=== PATIENT | female | born 1960 | race Caucasian/White ===

== ENCOUNTER → 2016-06-16 | Outpatient (CLI) | payer BC ==
--- NOTE | 2016-06-17 10:09 | MM ---
Reason for exam: screening (asymptomatic). Last mammogram was performed 1 year ago. History: Family history of breast cancer in cousin. Benign excisional biopsy of the left breast, 1991. Physical Findings: A clinical breast exam by your physician is recommended on an annual basis and results should be correlated with mammographic findings. MG 3D Screening Mammo W/Cad Bilateral CC and MLO view(s) were taken. Prior study comparison: June 09, 2015, bilateral MG screening mammo w CAD. May 08, 2014, bilateral MG screening mammo w CAD. The breast tissue is heterogeneously dense. This may lower the sensitivity of mammography. No significant changes when compared with prior studies. ASSESSMENT: Benign, BI-RAD 2 RECOMMENDATION: Routine screening mammogram of both breasts in 1 year.
== END | disposition home or self-care (01) ==
LOC: RADMAMWWP 09:18
PROVIDERS: ATTEND Obstetrics & Gynecology
DX: Z12.31 Encounter for screening mammogram for malignant neoplasm of breast (principal)
CPT/HCPCS: 77063; G0202

== ENCOUNTER → 2016-11-23 | Outpatient (CLI) | payer BC ==
--- NOTE | 2016-11-23 15:07 | CT ---
EXAMINATION TYPE: CT brain wo/w con DATE OF EXAM: 11/23/2016 COMPARISON: NONE HISTORY: Patient complains of pressure behind left eye. CT DLP: 1615.6mGycm CONTRAST: CT scan of the head is performed without and with IV Contrast, patient injected with 100 mL of Omnipa que 300. Unenhanced followed by contrast enhanced CT of the brain is submitted for evaluation. The ventricles are midline. There is no evidence for intracranial hemorrhage or extra-axial collection. No mass e ffects are identified. Visualized bony calvarium is intact. Contrast is administered and no enhanci ng lesions are detected. No pathologic enhancement is identified. If symptoms persist consider MRI. IMPRESSION: No significant abnormality or enhancing lesion identified at this time.
== END | disposition home or self-care (01) ==
LOC: RADCTMAIN 14:23
PROVIDERS: ATTEND Family Medicine
DX: R51 Headache (principal)
CPT/HCPCS: 70470; Q9967

== ENCOUNTER → 2017-07-06 | Outpatient (CLI) | payer BC ==
--- NOTE | 2017-07-07 09:24 | MM ---
Reason for exam: screening (asymptomatic). Last mammogram was performed 1 year and 1 month ago. History: Family history of breast cancer in cousin. Benign excisional biopsy of the left breast, 1991. Physical Findings: A clinical breast exam by your physician is recommended on an annual basis and results should be correlated with mammographic findings. MG 3D Screening Mammo W/Cad Bilateral CC, MLO, and XCCL view(s) were taken. Prior study comparison: June 16, 2016, bilateral MG 3d screening mammo w/cad. June 09, 2015, bilateral MG screening mammo w CAD. The breast tissue is heterogeneously dense. This may lower the sensitivity of mammography. There is chronic nodularity bilaterally. No significant changes when compared with prior studies. ASSESSMENT: Benign, BI-RAD 2 RECOMMENDATION: Routine screening mammogram of both breasts in 1 year.
== END | disposition home or self-care (01) ==
LOC: RADMAMWWP 09:29
PROVIDERS: ATTEND Obstetrics & Gynecology
DX: Z12.31 Encounter for screening mammogram for malignant neoplasm of breast (principal)
CPT/HCPCS: 77063; 77067

== ENCOUNTER → 2017-10-12 | Outpatient (CLI) | payer BC ==
--- NOTE | 2017-10-12 14:42 | XR ---
EXAMINATION TYPE: XR calcaneus 2V LT DATE OF EXAM: 10/12/2017 COMPARISON: NONE HISTORY: Foot pain after walking. TECHNIQUE: 2 views of left calcaneus are obtained. FINDINGS: No acute fracture or dislocation is evident. Boehler's angle is maintained. No significant spurring is noted. Overlying soft tissue is unremarkable. IMPRESSION: As above.
== END | disposition home or self-care (01) ==
LOC: RADXRMAIN 14:02
PROVIDERS: ATTEND Family Medicine
DX: M79.672 Pain in left foot (principal)

== ENCOUNTER → 2017-10-26 | Outpatient (CLI) | payer BC ==
--- NOTE | 2017-10-26 13:30 | US ---
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 EXAM MEASUREMENTS: RIGHT: Peak Systolic Velocity (PSV) cm/sec ----- Right CCA: 65.1 ----- Right ICA: 63.9 ----- Right ECA:84.4 ICA/CCA ratio: 1.0 RIGHT: End Diastole cm/sec ----- Right CCA: 20.6 ----- Right ICA: 28.9 ----- Right ECA: 16.8 LEFT: Peak Systolic Velocity (PSV) cm/sec ----- Left CCA: 82.0 ----- Left ICA: 64.7 ----- Left ECA: 89.7 ICA/CCA ratio: 0.8 LEFT: End Diastole cm/sec ----- Left CCA: 18.2 ----- Left ICA: 24.9 ----- Left ECA: 11.1 VERTEBRALS (direction of flow): Right Vertebral: Antegrade Left Vertebral: Antegrade Rhythm: Normal No evident atherosclerotic changes with no significant velocity elevations. IMPRESSION: No sonographically evident hemodynamically significant stenosis within either visualized carotid arterial system.
== END | disposition home or self-care (01) ==
LOC: RADUSWWP 12:42
PROVIDERS: ATTEND Family Medicine
DX: I65.29 Occlusion and stenosis of unspecified carotid artery (principal)
CPT/HCPCS: 93880

== ENCOUNTER → 2017-11-15 | Outpatient (CLI) | payer BC | END | disposition home or self-care (01) | LOC: LABWHC1 06:42 | PROVIDERS: ATTEND Family Medicine | DX: M45.9 Ankylosing spondylitis of unspecified sites in spine (principal) | CPT/HCPCS: 36415 ==

== ENCOUNTER → 2018-01-02 | Outpatient (CLI) | payer BC ==
--- NOTE | 2018-01-02 10:06 | CT ---
EXAMINATION TYPE: CT brain wo/w con DATE OF EXAM: 01/02/2018 COMPARISON: 11/23/2016 HISTORY: 57-year-old female headache and Uveitis TECHNIQUE: Examination was done in axial plane without intravenous contrast. Coronal and sagittal r econstructions performed. CT DLP: 1963.4 mGycm Automated exposure control for dose reduction was used. FINDINGS: There is no evidence of acute intracranial hemorrhage, acute ischemic changes, mass, mass-effect, or extra-axial fluid collection. There is no effacement of cerebral sulci or basal subarachnoid cister ns. There is no hydrocephalus. There is no midline shift. Sullivan-white matter distinction is preserv ed. No enhancing intracranial lesions. Dural venous sinuses are patent. Trace mucosal thickening ethmoid air cells. Mastoid air cells well pneumatized. Orbits and globes are intact. IMPRESSION: No acute intracranial abnormality seen. No enhancing intracranial lesions.
== END | disposition home or self-care (01) ==
LOC: RADCTMAIN 08:58
PROVIDERS: ATTEND Family Medicine
DX: R51 Headache (principal); H20.00 Unspecified acute and subacute iridocyclitis
CPT/HCPCS: 70470; Q9967

== ENCOUNTER → 2018-07-12 | Outpatient (CLI) | payer BC ==
--- NOTE | 2018-07-16 08:07 | MM ---
Reason for exam: screening (asymptomatic). Last mammogram was performed 1 year ago. History: Patient is postmenopausal. Family history of breast cancer in cousin. Benign excisional biopsy of the left breast, 1991. Physical Findings: A clinical breast exam by your physician is recommended on an annual basis and results should be correlated with mammographic findings. MG 3D Screening Mammo W/Cad Bilateral CC, MLO, and XCCL view(s) were taken. Prior study comparison: July 06, 2017, bilateral MG 3d screening mammo w/cad. June 16, 2016, bilateral MG 3d screening mammo w/cad. The breast tissue is extremely dense which could obscure a lesion on mammography. Finding: There are 5 grouped/clustered, fine calcifications in the middle position on XCCL view. New finding since July 06, 2017 and June 16, 2016. ASSESSMENT: Incomplete: need additional imaging evaluation, BI-RAD 0 RECOMMENDATION: Special view mammogram of the right breast. [facility] will attempt to contact patient to return for supplemental views.
== END ==
LOC: RADMAMWWP 09:17
PROVIDERS: ATTEND Obstetrics & Gynecology
DX: Z12.31 Encounter for screening mammogram for malignant neoplasm of breast (principal)
CPT/HCPCS: 77063; 77067

== ENCOUNTER → 2018-07-26 | Outpatient (CLI) | payer BC ==
--- NOTE | 2018-07-26 08:43 | MM ---
Reason for exam: additional evaluation requested from abnormal screening. Last mammogram was performed less than 1 month ago. History: Patient is postmenopausal. Family history of breast cancer in cousin. Benign excisional biopsy of the left breast, 1991. Physical Findings: Nurse did not find any significant physical abnormalities on exam. MG 3D Work Up W/Cad RT CC, ML, ML with magnification, and CC with magnification view(s) were taken of the right breast. Prior study comparison: July 12, 2018, bilateral MG 3d screening mammo w/cad. July 06, 2017, bilateral MG 3d screening mammo w/cad. No suspicious cluster in the right breast identified on additional views. These results were verbally communicated with the patient and result sheet given to the patient on 07/26/18. ASSESSMENT: Negative, BI-RAD 1 RECOMMENDATION: Return to routine screening mammogram schedule for both breasts.
== END | disposition home or self-care (01) ==
LOC: RADMAMWWP 07:29
PROVIDERS: ATTEND Obstetrics & Gynecology
DX: R92.8 Other abnormal and inconclusive findings on diagnostic imaging of breast (principal)
CPT/HCPCS: 77061; 77065

== ENCOUNTER → 2019-08-01 | Outpatient (CLI) | payer BC ==
--- NOTE | 2019-08-01 12:45 | BD ---
EXAMINATION TYPE: Axial Bone Density DATE OF EXAM: 08/01/2019 COMPARISON: 05.27.2015 CLINICAL HISTORY: 58 YR OLD FEMALE.....ICD-10 CODE: M89.9 DISORDER OF BONE Height: 64 Weight: 174 FRAX RISK QUESTIONS: History of Fracture in Adulthood: NOT OVER 50 YRS OLD RISK FACTORS HISTORY OF: HX OF LT ANKLE < 50 YRS OLD History of Wrist Fracture: LT WRIST FX...< 50 YRS OLD Postmenopausal woman: YES, AT ABOUT 55 YRS OLD Hyperparathyroidism: NO Adrenal Insufficiency: NO MEDICATIONS: Additional Medications: ATIVAN, MULTIVITAMIN, STEROIDAL DROPS FOR EYES Additional History: BENIGN EXCISIONAL LT BREAST , EXAM MEASUREMENTS: Bone mineral densitometry was performed using the [employer]. Bone mineral density as measured about the Lumbar spine is: ----- L1-L4(G/cm2): 1.111 T Score Values are as follows: ----- L1: -0.6 ----- L2: -0.9 ----- L3: -0.6 ----- L4: -0.4 ----- L1-L4: -0.6 Bone mineral density has: Decreased -9.5% since study of: 05.27.2015 Bone mineral density about the R hip (g/cm2): 0.949 Bone mineral density about the L hip (g/cm2): 0.920 T Score values are as follows: -----R Neck: -0.7 -----L Neck: -0.9 -----R Total: -0.5 -----L Total: -0.7 Bone mineral density has: Decreased -9.2% since study of: 05.27.2015 FRAX%s: THERE IS A 10.9% CHANCE FOR A MAJOR OSTEOPOROTIC FX AND A 0.5% FOR HIP.....PROBABILITY FOR FX IN 10 YRS TIME IMPRESSION: Normal (Values between +1 and -1 indicate normal bone mass). Consider repeating this study in 5 year s or sooner if there is some new clinical indication. NOTE: T-SCORE=SD OF THE YOUNG ADULT MEAN.
--- NOTE | 2019-08-01 13:49 | MM ---
Reason for exam: screening (asymptomatic). Last mammogram was performed 1 year ago. History: Patient is postmenopausal. Family history of breast cancer in cousin. Benign excisional biopsy of the left breast, 1991. Physical Findings: A clinical breast exam by your physician is recommended on an annual basis and results should be correlated with mammographic findings. MG 3D Screening Mammo W/Cad Bilateral CC and MLO view(s) were taken. Prior study comparison: July 26, 2018, right breast MG 3d work up w/cad RT. July 12, 2018, bilateral MG 3d screening mammo w/cad. The breast tissue is heterogeneously dense. This may lower the sensitivity of mammography. No suspicious abnormality on the left breast. Right upper outer quadrant middle posterior depth focal asymmetry. ASSESSMENT: Incomplete: need additional imaging evaluation, BI-RAD 0 RECOMMENDATION: Special view mammogram of the right breast. If lesion persists on supplemental views, image directed ultrasound is recommended. [facility] will attempt to contact patient to return for supplemental views and ultrasound if indicated.
== END | disposition home or self-care (01) ==
LOC: RADMAMWWP 10:03
PROVIDERS: ATTEND Obstetrics & Gynecology
DX: Z12.31 Encounter for screening mammogram for malignant neoplasm of breast (principal); M89.9 Disorder of bone, unspecified
CPT/HCPCS: 77063; 77067; 77080

== ENCOUNTER → 2019-08-09 | Outpatient (CLI) | payer BC ==
--- NOTE | 2019-08-09 12:05 | MM ---
Reason for exam: additional evaluation requested from abnormal screening. Last mammogram was performed less than 1 month ago. History: Patient is postmenopausal. Family history of breast cancer in cousin. Benign excisional biopsy of the left breast, 1991. Physical Findings: Nurse did not find any significant physical abnormalities on exam. MG 3D Work Up W/Cad RT Spot compression CC, spot compression MLO, and ML view(s) were taken of the right breast. Prior study comparison: August 01, 2019, bilateral MG 3d screening mammo w/cad. July 26, 2018, right breast MG 3d work up w/cad RT. The breast tissue is heterogeneously dense. This may lower the sensitivity of mammography. 6mm right upper outer quadrant focal asymmetry improves on additional views but does not entirely resolve. Precautionary right upper outer quadrant ultrasound resolves. These results were verbally communicated with the patient and result sheet given to the patient on 08/09/19. ASSESSMENT: Incomplete: need additional imaging evaluation, BI-RAD 0 RECOMMENDATION: Ultrasound of the right breast.
--- NOTE | 2019-08-09 12:07 | USB ---
Reason for exam: additional evaluation requested from abnormal screening. History: Patient is postmenopausal. Family history of breast cancer in cousin. Benign excisional biopsy of the left breast, 1991. US Breast Workup Limited RT Right limited breast ultrasound including focal area of concern, retroareolar and axilla demonstrates no cystic or solid lesion seen. Dense tissue at 10 and 11 o'clock corresponds to the mammographic abnormality. These results were verbally communicated with the patient and result sheet given to the patient on 08/09/19. ASSESSMENT: Benign, BI-RAD 2 RECOMMENDATION: Return to routine screening mammogram schedule for both breasts.
== END | disposition home or self-care (01) ==
LOC: RADMAMWWP 09:59
PROVIDERS: ATTEND Obstetrics & Gynecology
DX: R92.8 Other abnormal and inconclusive findings on diagnostic imaging of breast (principal)
CPT/HCPCS: 77061; 77065

== ENCOUNTER → 2020-06-23 | Outpatient (CLI) | payer BC ==
--- NOTE | 2020-06-23 14:08 | XR ---
EXAMINATION TYPE: XR sacrum coccyx DATE OF EXAM: 06/23/2020 CLINICAL HISTORY: pain TECHNIQUE: Three views of the sacrum and coccyx are submitted. COMPARISON: None Sacral alae appear symmetric. No evidence for fracture or bony lesion. Sacroiliac joints are within normal limits. Visualized coccygeal segments are free of fracture or lesion. IMPRESSION: Normal study
== END | disposition home or self-care (01) ==
LOC: RADXRMAIN 13:24
PROVIDERS: ATTEND Family Medicine
DX: M47.898 Other spondylosis, sacral and sacrococcygeal region (principal); M54.5 Low back pain
CPT/HCPCS: 72220

== ENCOUNTER → 2020-08-05 | Outpatient (CLI) | payer BC ==
--- NOTE | 2020-08-06 13:49 | MM ---
Reason for exam: screening (asymptomatic). Last mammogram was performed 1 year ago. History: Patient is postmenopausal. Family history of breast cancer in cousin. Benign excisional biopsy of the left breast, 1991. Physical Findings: A clinical breast exam by your physician is recommended on an annual basis and results should be correlated with mammographic findings. MG 3D Screening Mammo W/Cad Bilateral CC and MLO view(s) were taken. XCCL view(s) were taken of the right breast. Prior study comparison: August 09, 2019, right breast MG 3d work up w/cad RT. August 01, 2019, bilateral MG 3d screening mammo w/cad. The breast tissue is heterogeneously dense. This may lower the sensitivity of mammography. No significant changes when compared with prior studies. ASSESSMENT: Benign, BI-RAD 2 RECOMMENDATION: Routine screening mammogram of both breasts in 1 year.
== END | disposition home or self-care (01) ==
LOC: RADMAMWWP 10:35
PROVIDERS: ATTEND Obstetrics & Gynecology
DX: Z12.31 Encounter for screening mammogram for malignant neoplasm of breast (principal)
CPT/HCPCS: 77063; 77067

== ENCOUNTER → 2021-01-19 | Outpatient (CLI) | payer BC | END | disposition home or self-care (01) | LOC: LABWHC1 15:46 | PROVIDERS: ATTEND Family Medicine | DX: D64.9 Anemia, unspecified (principal); E53.8 Deficiency of other specified B group vitamins; M19.90 Unspecified osteoarthritis, unspecified site; R53.83 Other fatigue | CPT/HCPCS: 36415; 82306; 82607; 82672; 83001; 83615; 84403 ==

== ENCOUNTER → 2021-08-06 | Outpatient (CLI) | payer BC ==
--- NOTE | 2021-08-10 10:42 | MM ---
Reason for exam: screening (asymptomatic). Last mammogram was performed 1 year ago. History: Patient is postmenopausal. Family history of breast cancer in cousin. Benign excisional biopsy of the left breast, 1991. Physical Findings: A clinical breast exam by your physician is recommended on an annual basis and results should be correlated with mammographic findings. MG 3D Screening Mammo W/Cad Bilateral CC and MLO view(s) were taken. Prior study comparison: August 05, 2020, bilateral MG 3d screening mammo w/cad. August 09, 2019, right breast MG 3d work up w/cad RT. The breast tissue is heterogeneously dense. This may lower the sensitivity of mammography. Unchanged bilateral asymmetric densities. No significant changes when compared with prior studies. ASSESSMENT: Benign, BI-RAD 2 RECOMMENDATION: Routine screening mammogram of both breasts in 1 year.
== END | disposition home or self-care (01) ==
LOC: RADMAMWWP 16:02
PROVIDERS: ATTEND Obstetrics & Gynecology Obstetrics
DX: Z12.31 Encounter for screening mammogram for malignant neoplasm of breast (principal)
CPT/HCPCS: 77063; 77067

== ENCOUNTER → 2021-10-12 | Outpatient (CLI) | payer BC ==
--- NOTE | 2021-10-13 14:08 | XR ---
EXAMINATION TYPE: XR foot complete bilateral DATE OF EXAM: 10/12/2021 COMPARISON: None HISTORY: Bilateral foot pain x1 month TECHNIQUE: Bilateral feet are examined in 3 projections each. FINDINGS: There is soft tissue swelling over the distal fifth metatarsal phalangeal joint space left foot. Left calcaneal plantar heel spur is present. Smaller right plantar calcaneal heel spur is prese nt. Hammertoes may be present on the right. No acute fractures or dislocations are evident. Joint spaces appears preserved. IMPRESSION: 1. Bilateral calcaneal heel spurs. 2. Soft tissue swelling at the distal fifth left metatarsal phalangeal joint space.
== END | disposition home or self-care (01) ==
LOC: RADXRMAIN 15:52
PROVIDERS: ATTEND Family Medicine
DX: M77.32 Calcaneal spur, left foot (principal); M77.31 Calcaneal spur, right foot; M79.671 Pain in right foot; M79.672 Pain in left foot

== ENCOUNTER 2022-07-26 18:02 | Emergency (ER) | payer BC ==
[2022-07-26 18:16] VITALS: TEMP 98.3
--- NOTE | 2022-07-26 18:34 | XR ---
EXAMINATION TYPE: XR chest 2V DATE OF EXAM: 07/26/2022 COMPARISON: NONE HISTORY: Chest pain TECHNIQUE: FINDINGS: Heart and mediastinum are normal. Lungs are clear. Diaphragm is normal. Bony thorax is intact. IMPRESSION: Normal chest.
[2022-07-26] MEDS ORDERED: ASPIRIN 81 MG PO STA (19:04)
--- NOTE | 2022-07-26 19:17 | ED ---
Chest Pain HPI - General Chief Complaint: Chest Pain Stated Complaint: chest and back pain Time Seen by Provider: 07/26/22 18:41 Source: patient, family Mode of arrival: ambulatory Limitations: no limitations - History of Present Illness Initial Comments: Patient is a 61-year-old female presenting with chief complaint of chest pain. She admits to right-sided chest pain that started around 2:00 this afternoon. States that it radiates into the back. Patient states she tried taking antacid at home which did not alleviate her symptoms. Pain is sharp in nature. She is having no shortness of breath and there is no pleuritic character to this pain. No nausea, vomiting, diaphoresis, dizziness. No abdominal pain. No injury or trauma. Patient does have history of cholecystectomy. - Related Data Home Medications Medication Instructions Recorded Confirmed LORazepam [Ativan] 1 mg PO BID PRN 07/26/22 07/26/22 Timolol 0.5% Ophth Soln [Timoptic 1 drop BOTH EYES BID 07/26/22 07/26/22 0.5% Ophth Soln] Previous Rx's Medication Instructions Recorded Cyclobenzaprine [Flexeril] 10 mg PO HS PRN #10 tab 07/27/22 Allergies Allergy/AdvReac Type Severity Reaction Status Date / Time Sulfa (Sulfonamide Allergy Rash/Hives Verified 07/26/22 22:12 Antibiotics) Review of Systems ROS Statement: Those systems with pertinent positive or pertinent negative responses have been documented in the HPI. ROS Other: All systems not noted in ROS Statement are negative. EKG Findings - EKG Comments: EKG Findings:: Sinus rhythm with sinus arrhythmia. Ventricular rate 64. CA interval 176. QRS 93. QT 379. QTc 389. No ST deviation or T wave inversion. EKG interpreted by me as well as my attending Dr. Marley. Past Medical History Past Medical History: Eye Disorder Additional Past Medical History / Comment(s): GLAUCOMA. "IRREGULAR BOWELS." History of Any Multi-Drug Resistant Organisms: None Reported Past Surgical History: Cholecystectomy Additional Past Surgical History / Comment(s): LEFT BREAST BX BENIGN. JAMAAL EYE SX FOR GLAUCOMA. COLONOSCOPIES Past Anesthesia/Blood Transfusion Reactions: No Reported Reaction Past Psychological History: No Psychological Hx Reported Past Alcohol Use History: Rare Past Drug Use History: None Reported - Past Family History Father Family Medical History: Cancer General Exam Limitations: no limitations General appearance: alert, in no apparent distress Head exam: Present: atraumatic, normocephalic, normal inspection Eye exam: Present: normal appearance Neck exam: Present: normal inspection Respiratory exam: Present: normal lung sounds bilaterally. Absent: respiratory distress, wheezes, rales, rhonchi, stridor Cardiovascular Exam: Present: regular rate, normal rhythm, normal heart sounds. Absent: systolic murmur, diastolic murmur, rubs, gallop, clicks Neurological exam: Present: alert, oriented X3, CN II-XII intact Psychiatric exam: Present: normal affect, normal mood Skin exam: Present: warm, dry, intact, normal color. Absent: rash Course Vital Signs 07/26/22 07/26/22 07/27/22 18:11 21:16 00:12 Temperature 98.3 F Pulse Rate 63 56 L 65 Respiratory 16 18 16 Rate Blood Pressure 137/64 135/83 135/83 O2 Sat by Pulse 99 97 100 Oximetry 07/27/22 00:30 Temperature Pulse Rate 63 Respiratory 15 Rate Blood Pressure 145/82 O2 Sat by Pulse Oximetry Chest Pain MDM - MDM Was pt. sent in by a medical professional or institution (, PA, MANAGED CARE DIRECTOR, urgent care, hospital, or custodial...) When possible be specific @ -No Did you speak to anyone other than the patient for history (EMS, parent, family, police, friend...)? What history was obtained from this source @ -No Did you review nursing and triage notes (agree or disagree)? Why? @ -I reviewed and agree with nursing and triage notes Were old charts reviewed (outside hosp., previous admission, EMS record, old EKG, old radiological studies, urgent care reports/EKG's, custodial records)? Report findings @ -No old charts were reviewed Differential Diagnosis (chest pain, altered mental status, abdominal pain women, abdominal pain men, vaginal bleeding, weakness, fever, dyspnea, syncope, headache, dizziness, GI bleed, back pain, seizure, CVA, palpatations, mental health, musculoskeletal)? @ -MDM Differential Chest Pain: Stable Angina, Unstable Angina, STEMI, NSTEMI Aortic Dissection, Pneumothorax, Musculoskeletal, Esophageal Spasm GERD, Cholecystitis, Pancreatitis, Zoster This is not meant to be an all-inclusive list. EKG interpreted by me (3pts min.). @ -As above X-rays interpreted by me (1pt min.). @ -Chest x-ray shows normal chest CT interpreted by me (1pt min.). 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 No aortic aneurysm or dissection. No other significant vascular abnormality. No evidence of pulmonary embolism. U/S interpreted by me (1pt. min.). @ -None done What testing was considered but not performed or refused? (CT, X-rays, U/S, labs)? Why? @ -None What meds were considered but not given or refused? Why? @ -None Did you discuss the management of the patient with other professionals (professionals i.e. DrNikkie, PA, MANAGED CARE DIRECTOR, lab, RT, psych nurse, social security specialist, retail sales associate, teacher, network security officer, casework supervisor)? Give summary @ -No Was smoking cessation discussed for >3mins.? @ -No Was critical care preformed (if so, how long)? @ -No Were there social determinants of health that impacted care today? How? (Homelessness, low income, unemployed, alcoholism, drug addiction, transportation, low edu. Level, literacy, decrease access to med. care, halfway, rehab)? @ -No Was there de-escalation of care discussed even if they declined (Discuss DNR or withdrawal of care, Hospice)? DNR status @ -No What co-morbidities impacted this encounter? (DM, HTN, Smoking, COPD, CAD, Cancer, CVA, ARF, Chemo, Hep., AIDS, mental health diagnosis, sleep apnea, morbid obesity)? @ -None Was patient admitted / discharged? Hospital course, mention meds given and route, prescriptions, significant lab abnormalities, going to OR and other pertinent info. @ -Patient is a 61-year-old female presenting with chief complaint of chest pain that started this afternoon. Does admit the pain goes into her back. On physical examination heart and lungs are clear to auscultation. Vital signs are stable. D-dimer is 0.63. Remainder of lab work is essentially unremarkable including troponin which is less than 0.012. Chest x-ray shows no acute process. CTA shows no evidence of aortic aneurysm or dissection, there is no evidence of pulmonary embolism, celiac artery stenosis is noted. Patient has no significant medical history. Vital signs have remained stable throughout her course here in the ER. She is resting comfortably at this time. Heart score is 2. Patient is educated on these findings instructed to follow-up with her PCP. Follow-up with PCP. Report back to ER with any new or worsening symptoms. Discussed return parameters and answered all questions. Patient conveyed verbal understanding and agreed to the plan. I discussed this case in detail with my attending Dr. Elise Undiagnosed new problem with uncertain prognosis? @ -No Drug Therapy requiring intensive monitoring for toxicity (Heparin, Nitro, Insulin, Cardizem)? @ -No Were any procedures done? @ -No Diagnosis/symptom? @ -Atypical chest pain Acute, or Chronic, or Acute on Chronic? @ -Acute Uncomplicated (without systemic symptoms) or Complicated (systemic symptoms)? @ -Uncomplicated Side effects of treatment? @ -No Exacerbation, Progression, or Severe Exacerbation? @ -No Disposition Clinical Impression: Musculoskeletal back pain, Atypical chest pain Disposition: HOME SELF-CARE Condition: Fair Instructions (If sedation given, give patient instructions): Chest Pain (ED) Additional Instructions: Follow-up with PCP. Report back to ER with any new or worsening symptoms. Take medication as prescribed. Take Motrin and Tylenol as needed. Prescriptions: Cyclobenzaprine [Flexeril] 10 mg PO HS PRN #10 tab PRN Reason: Spasms Is patient prescribed a controlled substance at d/c from ED?: No Referrals: Donell Cochran DO [Primary Care Provider] - 1-2 days Time of Disposition: 00:55
[2022-07-26 19:35] LABS: Basophils % (A) 1 %; Eosinophils # (A) 0.1 k/uL (0-0.7); Eosinophils % (A) 3 %; HCT 42.9 % (34.0-46.0); HGB 14.4 gm/dL (11.4-16.0); Lymphocytes # (A) 1.9 k/uL (1.0-4.8); Lymphocytes % (A) 43 %; MCH 30.5 pg (25.0-35.0); MCHC 33.5 g/dL (31.0-37.0); MCV 91.2 fL (80.0-100.0); Mean Platelet Volume 10.5; Monocytes # (A) 0.3 k/uL (0-1.0); Monocytes % (A) 7 %; Neutrophils # (A) 1.9 k/uL (1.3-7.7); Neutrophils % (A) 43 %; Platelet Count 174 k/uL (150-450); RBC 4.71 m/uL (3.80-5.40); WBC 4.5 k/uL (3.8-10.6)
[2022-07-26 19:38] LABS: ALT 40 U/L (4-34); AST 32 U/L (14-36); African American GFR (CKD) >90 (>60 ml/min/1.73 sqM); Alkaline Phosphatase 75 U/L (38-126); Amylase 88 U/L (30-110); Anion Gap 6 mmol/L; Blood Urea Nitrogen 17 mg/dL (7-17); Calcium 9.1 mg/dL (8.4-10.2); Carbon Dioxide 29 mmol/L (22-30); Chloride 103 mmol/L (98-107); Glucose 96 mg/dL (74-99); Lipase 159 U/L (23-300); Magnesium 2.2 mg/dL (1.6-2.3); Non-African American GFR(CKD) >90 (>60 ml/min/1.73 sqM); Potassium 4.3 mmol/L (3.5-5.1); Sodium 138 mmol/L (137-145); Total Bilirubin 0.5 mg/dL (0.2-1.3); Total Protein 6.8 g/dL (6.3-8.2)
[2022-07-26 19:39] LABS: INR 0.9 (<1.2); Partial Thromboplastin Time 23.2 sec (22.0-30.0); Prothrombin Time 9.8 sec (9.0-12.0)
[2022-07-26 20:58] LABS: Appearance,Urine Clear (Clear); Bilirubin,Urine Negative (Negative); Blood,Urine Negative (Negative); Color,Urine Colorless; Glucose,Urine (UA) Negative (Negative); Ketones,Urine Negative (Negative); Leukocyte Esterase,Urine Negative (Negative); Nitrite,Urine Negative (Negative); PH, Urine 5.5 (5.0-8.0); Protein,Urine Negative (Negative); Specific Gravity,Urine 1.004 (1.001-1.035); Urobilinogen,Urine <2.0 mg/dL (<2.0)
[2022-07-26] MEDS ORDERED: SODIUM CHLORIDE 0.9% 1,000 ML IV ONE (23:09)
[2022-07-27 00:35] VITALS: BP 145/82; PULSE 63; RESP 15
--- NOTE | 2022-07-27 00:42 | CT ---
EXAMINATION TYPE: CT angio thor/abd pel aorta DATE OF EXAM: 07/27/2022 COMPARISON: None HISTORY: elevated d-dimer CT DLP: 1738.1 mGycm Automated exposure control for dose reduction was used. CONTRAST: Performed with IV Contrast, patient injected with 100 mL of Isovue 370. Images obtained from the thoracic inlet to the floor of the pelvis without and subsequently with the IV contrast. There are Three-D postprocessed images. There is no mediastinal adenopathy. There are no hilar masses. Heart size is normal. No pericardial e ffusion. The lungs are clear of infiltrate. No evidence of a pulmonary mass. No pleural effusion. Liver spleen stomach pancreas appear intact. The bowel is not dilated. There are clips from cholecyst ectomy. There is no adrenal mass. Kidneys have normal size. No hydronephrosis. No retroperitoneal adenopathy. The bladder distends smoothly. No inguinal hernia. No free fluid in the pelvis. No pelvic mass. Appe ndix is posterior and appears normal. There is no mesenteric edema. No ascites or free air. No sign of a bowel obstruction. The thoracic aorta is intact. No aneurysm or dissection. No evidence of filling defect in the pulmona ry arteries. There is normal branching pattern of the great vessels on the aortic arch. There is satinder rial flow in the subclavian and common carotid arteries. Abdominal aorta has an normal size and contour. No aneurysm or dissection. There is arterial flow in the celiac artery and superior mesenteric artery. There is 13 mm segment of the proximal celiac arter y with subtotal occlusion. Stenosis is more than 90%. Distal branches of the celiac artery appear nor mal. Superior mesenteric artery appears widely patent. There is arterial flow in the renal and iliac and femoral arteries. No evidence of hemodynamic stenos is. No arterial aneurysm or dissection. The thoracic and lumbar vertebra. Intact. No compression fracture. Sternum is intact. The bony pelvis is intact. The hip joints are intact. 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 No aortic aneurysm or dissection. No other significant vascular abnormality. No evidence of pulmonary embolism.
== END 2022-07-27 01:11 | disposition home or self-care (01) ==
LOC: EC 18:02
DX: R07.89 Other chest pain (principal); M54.9 Dorsalgia, unspecified; Z88.2 Allergy status to sulfonamides
CPT/HCPCS: 99285 ×2; 96360 ×2; 36415; 93005; 85379; 80053; 82150; 83690; 83735; 84484; 85025; 85610; 85730; 81003; 71046; 71275; 74174; Q9967

== ENCOUNTER → 2022-12-29 | Outpatient (CLI) | payer BC ==
[2022-12-29 17:03] LABS: HCT 45.7 % (37.2-46.3); HGB 14.5 d/dL (12.0-15.0); MCH 29.7 pg (27.0-32.0); MCHC 31.7 d/dL (32.0-37.0); MCV 93.6 FL (80.0-97.0); Mean Platelet Volume 12.9 FL (9.5-12.2); NRBC Per 100 WBC 0 X 10*3/uL (0.00-0.01); Platelet Count 214 X 10*3/uL (140-440); RBC 4.88 X 10*6/uL (4.10-5.20); RDW 12.6 % (11.5-14.5); WBC 4.46 X 10*3/uL (4.50-10.00)
[2022-12-29 17:33] LABS: BUN/Creat Ratio 17.62 Ratio (12.00-20.00); Blood Urea Nitrogen 14.1 mg/dL (9.0-27.0); Chloride 106 mmol/L (96-109); Chol/HDL Ratio 3.13 Ratio; Glucose 94 mg/dL (70-110); LDL Cholesterol,Calculated 123.4 mg/dL (0.0-131.0); Potassium 5.2 mmol/L (3.5-5.5); Sodium 140 mmol/L (135-145); VLDL Calculation 16.78 mg/dL (5.00-40.00)
[2022-12-29 17:34] LABS: ALT 35 U/L (8-44); AST 28 U/L (13-35); Albumin 4.3 d/dL (3.8-4.9); Albumin/Globulin Ratio 1.72 Ratio (1.60-3.17); Alkaline Phosphatase 71 U/L (41-126); Calcium 10.2 mg/dL (8.7-10.3); Carbon Dioxide 26.3 mmol/L (21.6-31.8); Globulin 2.5 d/dL (1.6-3.3); T4, Free (Free Thyroxine) 1.29 ng/dL (0.80-1.80); Total Protein 6.8 d/dL (6.2-8.2)
[2022-12-29 22:18] LABS: Appearance,Urine Clear (Clear); Bilirubin,Urine Negative (Negative); Blood,Urine Negative (Negative); Color,Urine Yellow (Yellow); Ketones,Urine Trace (Negative); Nitrite,Urine Negative (Negative); Specific Gravity,Urine 1.016 (1.001-1.030)
[2022-12-29 22:36] LABS: Bacteria,Urine None Seen (None Seen)
== END | disposition home or self-care (01) ==
LOC: LABWHC1 10:10
PROVIDERS: ATTEND Family Medicine
DX: Z00.00 Encounter for general adult medical examination without abnormal findings (principal)
CPT/HCPCS: 36415; 80053; 80061; 81001; 82306; 84439; 84443; 85027

== ENCOUNTER 2023-02-28 10:52 | Day surgery (SDC) | payer BC ==
[2023-02-22 16:24] VITALS: BMI 32.2
[2023-02-28 12:10] VITALS: TEMP 97.7
[2023-02-28] MEDS: LACTATED RINGERS 1,000 ML IV SCH ×2 (12:12→13:05)
[2023-02-28] MEDS ORDERED: PROPOFOL 10 MG/ML 20 ML VIAL IV ONE (13:06)
--- NOTE | 2023-02-28 13:21 | P.PCN ---
Date of Procedure: 02/28/23 Procedure(s) Performed: BRIEF HISTORY: Patient is a 62-year-old pleasant white female scheduled for an elective colonoscopy as a part of evaluation of prior history of colon polyps. Her last colonoscopy was 5 years ago. PROCEDURE PERFORMED: Colonoscopy. PREOPERATIVE DIAGNOSIS: History of colon polyps. IV sedation per Anesthesia. PROCEDURE: After informed consent was obtained, the patient, was brought into the endoscopy unit. IV sedation was administered by Anesthesia under continuous monitoring. Digital rectal examination was normal. Initially the Olympus CF-160 flexible video colonoscope was then inserted in the rectum, gradually advanced into the cecum without any difficulty. Careful examination was performed as the scope was gradually being withdrawn. Ileocecal valve and the appendiceal orifice were visualized and appeared normal. Prep was excellent. Mucosa of the cecum, ascending colon, transverse colon, descending colon, sigmoid colon, and rectum appeared normal. Retroflexion was performed in the rectum and no lesions were seen. The patient tolerated the procedure well. IMPRESSION: Normal-appearing colon from rectum to cecum with no evidence of colorectal neoplasia. RECOMMENDATIONS: Findings of this examination were discussed with the patient as well as a family. She was advised to have a repeat screening colonoscopy in 10 years..
[2023-02-28 13:50] VITALS: RESP 17
[2023-02-28 14:03] VITALS: BP 132/73; PULSE 55
== END 2023-02-28 14:10 | disposition home or self-care (01) ==
LOC: ORWHC2ENDO 10:52
PROVIDERS: ATTEND Internal Medicine Gastroenterology
DX: Z12.11 Encounter for screening for malignant neoplasm of colon (principal); Z88.2 Allergy status to sulfonamides; Z86.010 Personal history of colon polyps; Z79.899 Other long term (current) drug therapy
CPT/HCPCS: 45378; J2704

== ENCOUNTER → 2023-08-10 | Outpatient (CLI) | payer BC ==
--- NOTE | 2023-08-14 10:48 | MM ---
Reason for Exam: Screening (asymptomatic). Last screening mammogram was performed 12 month(s) ago. Patient History: Menarche at age 13. First Full-Term at age 22. Postmenopausal. 1991, Benign Excisional Biopsy on the left side. Maternal cousin had breast cancer. Risk Values: Katty 5 year model risk: 1.6%. NCI Lifetime model risk: 7.5%. Prior Study Comparison: 08/05/2020 Bilateral Screening Mammogram, [facility]. 08/06/2021 Bilateral Screening Mammogram, [facility]. 08/08/2022 Bilateral MG 3D screening mammo w/cad, [facility]. Tissue Density: The breasts are heterogeneously dense, which may obscure small masses. Findings: Analyzed By CAD. There is no suspicious group of microcalcifications or new suspicious mass in either breast. Overall Assessment: Benign, BI-RAD 2 Management: Screening Mammogram of both breasts in 1 year. . Patient should continue monthly self-breast exams. A clinical breast exam by your physician is recommended on an annual basis. This exam should not preclude additional follow-up of suspicious palpable abnormalities. Note on Katty scores and lifetime risk: 1. A Katty score greater than 3% is considered moderate risk. If this is the case, consider specialist referral to assess eligibility for a risk reducing agent. 2. If overall lifetime risk for the development of breast cancer is 20% or higher, the patient may qualify for future screening with alternating mammogram and breast MRI. Electronically signed and approved by: Abraham Olea M.D. Radiologis
== END | disposition home or self-care (01) ==
LOC: RADMAMWWP 15:47
PROVIDERS: ATTEND Obstetrics & Gynecology Obstetrics
DX: Z12.31 Encounter for screening mammogram for malignant neoplasm of breast (principal); Z78.0 Asymptomatic menopausal state; Z80.3 Family history of malignant neoplasm of breast
CPT/HCPCS: 77063; 77067

== ENCOUNTER → 2023-10-11 | Outpatient (CLI) | payer BC ==
--- NOTE | 2023-10-16 23:41 | XR ---
EXAMINATION TYPE: XR shoulder complete 3 views RT DATE OF EXAM: 10/11/2023 Comparison: None Clinical History: 63-year-old female M19.90 OA BOTH HIPS, M25.511 PAIN IN RT SHOULDER Findings: Mild degenerative change at the AC joint with marginal spurring. There is bony is irregularity at the greater tuberosity and there may be some narrowing of the subacromial space on the external rotation view. No acute fracture, subluxation, dislocation. Impression: Bony changes at the greater tuberosity suggesting chronic rotator cuff tendinopathy. If concern for u nderlying rotator cuff tear, MRI can be considered. Mild AC joint OA.
--- NOTE | 2023-10-16 23:42 | XR ---
EXAMINATION TYPE: XR Hip Bilateral Complete DATE OF EXAM: 10/11/2023 COMPARISON: NONE HISTORY: 63-year-old female pain for one month. M19.90 OA BOTH HIPS , M25.511 PAIN IN RT SHOULDER TECHNIQUE: 2 views each side FINDINGS: Bilateral hip joint space is maintained. No acute fracture, subluxation, or dislocation. No periostitis or osteolysis. IMPRESSION: No acute osseous abnormality seen on either side.
== END | disposition home or self-care (01) ==
LOC: RADXRMAIN 14:17
PROVIDERS: ATTEND Family Medicine
DX: M19.111 Post-traumatic osteoarthritis, right shoulder (principal); M25.511 Pain in right shoulder
CPT/HCPCS: 73521

== ENCOUNTER → 2023-11-06 | Outpatient (CLI) | payer BC ==
--- NOTE | 2023-11-06 23:14 | MR ---
EXAMINATION TYPE: MR shoulder RT wo con DATE OF EXAM: 11/06/2023 COMPARISON: Right shoulder x-ray October 11, 2023 HISTORY: Right shoulder pain, difficulty lifting arm, history of fall on ice. Primary osteoarthritis. TECHNIQUE: Multiplanar, multisequence imaging of the right shoulder is performed without contrast. FINDINGS: Rotator Cuff: Significant tear involving anterior three quarters of the distal supraspinatus tendon. Some increased signal and surrounding edema the distal infraspinatus tendon. Heterogeneity of the sub scapularis tendon. Rotator cuff muscle bulk is preserved. Acromioclavicular Joint: Moderate narrowing at the acromioclavicular joint. Mild superior capsular hy pertrophy. Underlying fat plane maintained. Glenohumeral Joint: Moderate sized joint effusion. No significant spurring. Labrum: The labrum appears grossly intact given limitation of non-arthrogram study. Biceps Tendon: The long head of biceps is in normal location within bicipital groove. Bone marrow signal: No focal abnormal marrow signal is appreciated. Other: No additional significant abnormality is appreciated. IMPRESSION: 1. Some tendinosis of the infraspinatus and subscapularis tendons. Significant tearing of the distal supraspinatus tendon. 2. Moderate-size glenohumeral joint effusion. Mild to moderate acromioclavicular degenerative changes .
== END | disposition home or self-care (01) ==
LOC: RADMRIMAIN 21:45
PROVIDERS: ATTEND Family Medicine
DX: M19.011 Primary osteoarthritis, right shoulder (principal); M67.813 Other specified disorders of tendon, right shoulder

== ENCOUNTER → 2024-01-22 | Outpatient (CLI) | payer BC ==
--- NOTE | 2024-01-23 22:21 | MR ---
EXAMINATION TYPE: MR hips BILAT wo con DATE OF EXAM: 01/22/2024 COMPARISON: Bilateral hip x-rays October 11, 2023 HISTORY: Bilateral hip pain Standard multiplanar, multisequence MRI departmental protocol Multiplanar, multisequence images of the pelvis focusing on the bilateral hips were acquired without contrast. FINDINGS: Symmetric small joint effusions or favor physiologic increased signal about the greater tro chanters bilaterally is seen consistent with insertional tendinosis. Findings slightly more prominent in the left hip. Femoral head shapes are maintained bilaterally. No serpiginous diminished T1 signal to suggest avascular necrosis. No suspicious increased T2 signal in the osseous structures of either hip. Symmetric mild/moderate narrowing and mild spurring of both hip joints is redemonstrated. No gr oin hernia or adenopathy is seen. Muscle bulk is maintained bilaterally. No free fluid in the pelvis. No abnormal bowel dilatation is seen. Urinary bladder is unremarkable IMPRESSION: [id number] degenerative changes in both hips as detailed above.
== END | disposition home or self-care (01) ==
LOC: RADMRIMAIN 20:59
PROVIDERS: ATTEND Family Medicine
DX: M16.0 Bilateral primary osteoarthritis of hip (principal)

== ENCOUNTER 2024-03-16 03:27 | Emergency (ER) | payer BC ==
[2024-03-16 03:31] VITALS: TEMP 98
--- NOTE | 2024-03-16 03:56 | ED ---
Neck Injury/Pain HPI - General Chief Complaint: Neck Pain/Injury Stated Complaint: Neck Spasms Time Seen by Provider: 03/16/24 03:48 Mode of arrival: ambulatory Limitations: no limitations - History of Present Illness Initial Comments: This patient is a 63-year-old woman presenting to have evaluation of right sided neck and shoulder pain. She states the pain had come on in the evening yesterday. She states that it was aching and then spasms started. She indicates the right trapezius area and base of the neck on the right side. She denies any injury. She states that she did have 1 [place] at home from a previous prescription and she took that and it did provide a number of hours of relief but the symptoms recurred. The patient denies any neurologic symptoms. No radi ation to the hand or forearm. No weakness or numbness. MD Complaint: neck pain -: hour(s) Place: home Radiation: right lateral, right shoulder Severity: severe Quality: other (spasms) Consistency: intermittent Improves With: other (norco) Worsens With: movement of neck Associated Symptoms: none Treatments Prior to Arrival: prescription pain med - Related Data Home Medications Medication Instructions Recorded Confirmed LORazepam [Ativan] 1 mg PO BID PRN 07/26/22 02/28/23 Timolol 0.5% Ophth Soln [Timoptic 1 drop BOTH EYES BID 07/26/22 02/28/23 0.5% Ophth Soln] Ibuprofen [Motrin] 800 mg PO Q8H PRN 02/22/23 02/22/23 Previous Rx's Medication Instructions Recorded methocarbamoL [Robaxin-750] 1,500 mg PO TID #42 tab 03/16/24 Allergies Allergy/AdvReac Type Severity Reaction Status Date / Time Sulfa (Sulfonamide Allergy Rash/Hives Verified 03/16/24 03:30 Antibiotics) Review of Systems ROS Statement: Those systems with pertinent positive or pertinent negative responses have been documented in the HPI. ROS Other: All systems not noted in ROS Statement are negative. Constitutional: Denies: fever, weakness Cardiovascular: Denies: chest pain Gastrointestinal: Denies: abdominal pain Musculoskeletal: Reports: as per HPI, myalgia Neurological: Denies: headache, weakness, numbness Past Medical History Past Medical History: Eye Disorder Additional Past Medical History / Comment(s): GLAUCOMA. "IRREGULAR BOWELS." History of Any Multi-Drug Resistant Organisms: None Reported Past Surgical History: Cholecystectomy Additional Past Surgical History / Comment(s): LEFT BREAST BX BENIGN. JAMAAL EYE SX FOR GLAUCOMA. COLONOSCOPIES Past Anesthesia/Blood Transfusion Reactions: No Reported Reaction Past Psychological History: No Psychological Hx Reported Smoking Status: Never smoker Past Alcohol Use History: Rare Past Drug Use History: None Reported - Past Family History Father Family Medical History: Cancer General Exam Limitations: no limitations General appearance: alert, in no apparent distress Head exam: Present: atraumatic, normocephalic Eye exam: Present: normal appearance Neck exam: Present: normal inspection, tenderness Back exam: Present: muscle spasm, paraspinal tenderness. Absent: vertebral tenderness Skin exam: Present: warm, dry, intact, normal color Course Vital Signs 03/16/24 03/16/24 03:28 05:36 Temperature 98 F Pulse Rate 78 60 Respiratory 18 16 Rate Blood Pressure 155/101 121/76 O2 Sat by Pulse 100 100 Oximetry Medical Decision Making - Medical Decision Making Was pt. sent in by a medical professional or institution (Dr. PA, [facility] CL[facility]PER, urgent care, hospital, or long-term...) When possible be specific @ -[No] Did you speak to anyone other than the patient for history (EMS, parent, family, police, friend...)? What history was obtained from this source @ -[No] Did you review nursing and triage notes (agree or disagree)? Why? @ -[I reviewed and agree with nursing and triage notes] Were old charts reviewed (outside hosp., previous admission, EMS record, old EKG, old radiological studies, urgent care reports/EKG's, long-term records)? Report findings @ -[No old charts were reviewed] Differential Diagnosis (chest pain, altered mental status, abdominal pain women, abdominal pain men, vaginal bleeding, weakness, fever, dyspnea, syncope, headache, dizziness, GI bleed, back pain, seizure, CVA, palpatations, mental health, musculoskeletal)? @ -Differential Musculoskeletal Muscular strain, contusion, ligament sprain, fracture, arthritis, septic arthritis, bursitis, cellulitis, muscle spasm, nerve compression, DVT, arterial occlusion, herpes zoster, electrolyte abnormality, tumor.... This is not meant to be in all inclusive list EKG interpreted by me (3pts min.). @ -[As above] X-rays interpreted by me (1pt min.). @ -[None done] CT interpreted by me (1pt min.). @ -[None done] U/S interpreted by me (1pt. min.). @ -[None done] What testing was considered but not performed or refused? (CT, X-rays, U/S, labs)? Why? @ -[None] What meds were considered but not given or refused? Why? @ -[None] Did you discuss the management of the patient with other professionals (professionals i.e. DrNikkie, PA, [facility]AM[facility], lab, RT, psych nurse, social studies department chair, landscape designer, teacher, first officer, rn field case manager)? Give summary @ -[No] Was smoking cessation discussed for >3mins.? @ -[No] Was critical care preformed (if so, how long)? @ -[No] Were there social determinants of health that impacted care today? How? (Homelessness, low income, unemployed, alcoholism, drug addiction, transportation, low edu. Level, literacy, decrease access to med. care, penitentiary, rehab)? @ -[No] Was there de-escalation of care discussed even if they declined (Discuss DNR or withdrawal of care, Hospice)? DNR status @ -[No] What co-morbidities impacted this encounter? (DM, HTN, Smoking, COPD, CAD, Cancer, CVA, ARF, Chemo, Hep., AIDS, mental health diagnosis, sleep apnea, morbid obesity)? @ -[None] Was patient admitted / discharged? Hospital course, mention meds given and route, prescriptions, significant lab abnormalities, going to OR and other pertinent info. @ -[Patient is a 63-year-old woman presenting with neck/shoulder pain. History and physical consistent with muscular source of pain and the patient does have good improvement with treatment. We discussed appropriate further care and follow-up as well as return parameters. Undiagnosed new problem with uncertain prognosis? @ -[No] Drug Therapy requiring intensive monitoring for toxicity (Heparin, Nitro, Insulin, Cardizem)? @ -[No] Were any procedures done? @ -[No] Diagnosis/symptom? @ -[Acute muscle strain Acute, or Chronic, or Acute on Chronic? @ -[Acute Uncomplicated (without systemic symptoms) or Complicated (systemic symptoms)? @ -[Uncomplicated Side effects of treatment? @ -[No] Exacerbation, Progression, or Severe Exacerbation? @ -[No] Poses a threat to life or bodily function? How? (Chest pain, [place], [place], pneumonia, PE, COPD, DKA, ARF, appy, cholecystitis, CVA, Diverticulitis, Homicidal, Suicidal, threat to staff... and all critical care pts) @ -[No] Disposition Clinical Impression: Strain of neck muscle Disposition: HOME SELF-CARE Condition: Good Instructions (If sedation given, give patient instructions): Cervical Strain (ED) Prescriptions: methocarbamoL [Robaxin-750] 1,500 mg PO TID #42 tab Is patient prescribed a controlled substance at d/c from ED?: No Referrals: Donell Cochran DO [Primary Care Provider] - 1-2 days
[2024-03-16] MEDS: KETOROLAC 15 MG/ML 1 ML VIAL IM STA (03:59)
[2024-03-16] MEDS: ORPHENADRINE 30 MG/ML 2 ML VIAL IM STA (03:59)
[2024-03-16] MEDS: MORPHINE SULFATE 4 MG/ML SYRINGE IM STA (05:14)
[2024-03-16] MEDS: CYCLOBENZAPRINE 10MG STARTER 3 TAB BTL PO STA (05:15)
[2024-03-16 05:37] VITALS: BP 121/76; PULSE 60; RESP 16
== END 2024-03-16 05:36 | disposition home or self-care (01) ==
LOC: EC 03:27
DX: S16.1XXA Strain of muscle, fascia and tendon at neck level, initial encounter (principal); Z88.2 Allergy status to sulfonamides
CPT/HCPCS: 99283; 96372 ×3; J2270; J2360; J1885

== ENCOUNTER → 2024-10-03 | Outpatient (CLI) | payer BC ==
--- NOTE | 2024-10-04 09:20 | MM ---
Reason for Exam: Screening (asymptomatic). Last mammogram was performed 1 year(s) and 2 month(s) ago. Patient History: Menarche at age 13. First Full-Term at age 22. Postmenopausal. 1991, Benign Excisional Biopsy on the left side. Maternal cousin had breast cancer, age 50. Risk Values: Katty 5 year model risk: 1.7%. NCI Lifetime model risk: 7.1%. Prior Study Comparison: 08/06/2021 Bilateral Screening Mammogram, [facility]. 08/08/2022 Bilateral MG 3D screening mammo w/cad, [facility]. 08/10/2023 Bilateral MG 3D screening mammo w/cad, [facility]. Tissue Density: The breasts are heterogeneously dense, which may obscure small masses. Findings: Analyzed By CAD. Right breast: There is no suspicious group of microcalcifications or new suspicious mass. Left breast: There is no suspicious group of microcalcifications or new suspicious mass. Overall Assessment: Negative, BI-RAD 1 Management: Screening Mammogram of both breasts in [address] [facility] will attempt to contact patient to return for supplemental views and ultrasound if indicated. Patient should continue monthly self-breast exams. A clinical breast exam by your physician is recommended on an annual basis. This exam should not preclude additional follow-up of suspicious palpable abnormalities. Note on Katty scores and lifetime risk: 1. A Katty score greater than 3% is considered moderate risk. If this is the case, consider specialist referral to assess eligibility for a risk reducing agent. 2. If overall lifetime risk for the development of breast cancer is 20% or higher, the patient may qualify for future screening with alternating mammogram and breast MRI. [facility], , 10/04/2024 9:17 AM. Electronically signed and approved by: Robson Donald DO
--- NOTE | 2024-10-04 11:16 | BD ---
EXAMINATION TYPE: Axial Bone Density DATE OF EXAM: 10/03/2024 CLINICAL HISTORY: 64 years old Female. ICD-10 CODE: Z78.0 ASYMPTOMATIC MENOPAUSAL STA , Additional H istory: Height: 64" Weight: 178lbs FRAX RISK QUESTIONS: Alcohol (3 or more units per day): No Family History (Parent hip fracture): No Glucocorticoids (More than 3mos): No (Ex: prednisone, prednisolone, methylprednisolone, dexamethasone, and hydrocortisone). History of Fracture in Adulthood: Yes Secondary Osteoporosis: 1. Type 1 Diabetes: No 2. Hyperthyroidism: No 3. Menopause before 45: No 4. Malnutrition: No 5. Chronic liver disease: No Rheumatoid Arthritis: No Current Tobacco Use: No RISK FACTORS HISTORY OF: Hip Fracture (Right/Left): No Spine Fracture: No History of Wrist Fracture: No Surgery to Spine/Hip(right/left)/Wrist (right/left): No MEDICATIONS: Thyroid Medications: No Osteoporosis Medications: No EXAM MEASUREMENTS: Bone mineral densitometry was performed using the [employer] System. Bone mineral density as measured about the Lumbar spine is: ----- L1-L4(G/cm2): 1.009 T Score Values are as follows: ----- L1: -1.8 ----- L2: -2.1 ----- L3: -1.2 ----- L4: -1.0 ----- L1-L4: -1.4 Z Score Values are as follows: ----- L1: -0.9 ----- L2: -1.2 ----- L3: -0.3 ----- L4: -0.1 ----- L1-L4: -0.5 Bone mineral density has: decreased -9.2% since study of: 08/01/2019 Bone mineral density about the R hip (g/cm2): 0.972 Bone mineral density about the L hip (g/cm2): 0.852 T Score values are as follows: -----R Neck: -0.7 -----L Neck: -1.3 -----R Total: -0.3 -----L Total: -1.2 Z Score values are as follows: -----R Neck: 0.3 -----L Neck: -0.3 -----R Total: 0.4 -----L Total: -0.5 Bone mineral density has: decreased -2.3% since study of: 08/01/2019 FRAX%s: The graph provided illustrates a 13.3% chance for a major osteoporotic fx and a 1.1% chance f or the hips probability for fx in 10 years time. IMPRESSION: Osteopenia (T Score between -2.5 and -1). There is slightly increased risk of fracture and the patient may be considered for treatment. Re-Screen 2-5 years. NOTE: T-SCORE=SD OF THE YOUNG ADULT MEAN. [facility], , 10/04/2024 11:14 AM
== END | disposition home or self-care (01) ==
LOC: RADBDWWP 15:34
PROVIDERS: ATTEND Obstetrics & Gynecology Obstetrics
DX: Z12.31 Encounter for screening mammogram for malignant neoplasm of breast (principal); M85.89 Other specified disorders of bone density and structure, multiple sites; R92.333 Mammographic heterogeneous density, bilateral breasts; Z80.3 Family history of malignant neoplasm of breast; Z78.0 Asymptomatic menopausal state
CPT/HCPCS: 77063; 77067; 77080